=== PATIENT | female | born 1955 | race Caucasian/White ===

== ENCOUNTER 2020-08-03 19:22 | Emergency (ER) | payer OTHER ==
--- OUTSIDE RECORDS SUMMARY | 2020-08-03 19:24 | XMS REPORT | Continuity of Care Document ---
:1955 Author Organization [facility] t Address [address] [place] [address] Dr. Cisneros [address] [place] [id number] Care Team Providers Name Role Phone Unavailable Unavailable Unavailable Problems This patient has no known problems. Allergies, Adverse Reactions, Alerts This patient has no known allergies or adverse reactions. Medications This patient has no known medications. Procedures This patient has no known procedures. Results This patient has no known results.
[2020-08-03 20:25] LABS: Absolute Lymphocytes (CBC) 1.3 K/uL (0.7-4.9); Basophils % 1.4 % (0-1.3); Hematocrit 52.9 % (36.0-45.0); Lymphocytes % 24.1 % (15.3-44.8); MPV 11.7 fL (7.6-11.3); RBC Red Blood Cell Count 4.44 M/uL (3.86-4.86)
--- NOTE | 2020-08-03 20:34 | RAD REPORT ---
EXAM DESCRIPTION: RAD - Chest Single View - 08/03/2020 8:07 pm CLINICAL HISTORY: AMS COMPARISON: Portable August 2014 TECHNIQUE: AP portable chest image was obtained 08/03/2020 8:07 pm . FINDINGS: Severe emphysema changes are present with large bullous cavities occupying substantial por tions of the upper chest. This is a pattern similar to comparison. No superimposed mass, infiltrate o r failure finding. Heart size has enlarged from comparison. Pulmonary vasculature is still within nor mal limits. Trachea is midline. No measurable pleural effusion and no pneumothorax. No acute bony abn ormality seen. No acute aortic findings suspected. IMPRESSION: Severe bolus emphysema change not substantially different from comparison. No superimpos ed acute mass or infiltrate identifiable. Cardiac silhouette is enlarged from comparison. No acute failure finding seen.
--- NOTE | 2020-08-03 20:42 | RAD REPORT ---
EXAM DESCRIPTION: CT - Head Brain Wo Cont - 08/03/2020 8:21 pm CLINICAL HISTORY: AMS COMPARISON: HEAD BRAIN W O CONTRAST dated 09/01/2014 TECHNIQUE: Axial 5 mm thick images of the head were obtained without IV contrast. All CT scans are performed using dose optimization technique as appropriate and may include automated exposure control or mA/KV adjustment according to patient size. FINDINGS: A 4 centimeter intraparenchymal hematoma is present in the posterior left temporal lobe ne ar the temporal occipital junction. There is surrounding edema in the adjacent parenchyma. An underly ing mass is not distinguishable. No other area of hemorrhage seen. No cortical edema or sulcal efface ment seen. Patient has underlying atrophy and chronic ischemic change. Ventricles are in proportion t o volume loss. Arterial and physiologic calcifications are present. Mastoid air cells are clear. Left maxillary sinus is opacified slight wall thickening. No acute bony findings. Findings telephoned to Dr Bauman at 2032 hours IMPRESSION: Approximately 4 centimeter intraparenchymal left temporal lobe hematoma. Surrounding rim of edema may indicate that this is been present for 1-2 days. No associated solid mass or vascular malformation seen. This is not a typical location for hypertensi ve hemorrhage. Hemorrhagic infarction is possible. Amyloid angiopathy also a consideration. Patient has underlying atrophy and chronic ischemic change. Chronic left maxillary sinusitis.
--- NOTE | 2020-08-03 20:43 | RAD REPORT ---
EXAM DESCRIPTION: CT - C Spine Wo Con - 08/03/2020 8:27 pm CLINICAL HISTORY: Altered mental status, fall, neck pain COMPARISON: None. TECHNIQUE: Axial 2 mm thick images of the cervical spine were obtained with sagittal and coronal rec onstruction images generated and reviewed. All CT scans are performed using dose optimization technique as appropriate and may include automated exposure control or mA/KV adjustment according to patient size. FINDINGS: Cervical body height and alignment are normal. Mild posterior disc space narrowing at C4-5 . Facet joint degenerative changes are minimal. No fracture or acute bony abnormality. No paraspinal mass or hematoma. Central canal detail is inherently limited on CT imaging. Left temporal intraparenchymal hemorrhage is separately reported on CT study. Patient has severe bolu s emphysema change in each upper lung field. Lung obregon are only partially imaged. IMPRESSION: No fracture or acute cervical spine finding. Minimal cervical spine degenerative change.
--- NOTE | 2020-08-03 20:50 | RAD REPORT ---
EXAM DESCRIPTION: CT - Chest Abd Pelvis Wo Con - 08/03/2020 8:35 pm CLINICAL HISTORY: FELL YESTERDAY COMPARISON: THORAX W CONTRAST dated 11/07/2012 TECHNIQUE: During dynamic enhancement using 100 milliliters nonionic IV contrast, axial 5 millimeter thick images of the chest, abdomen and pelvis were obtained. Biphasic technique was utilized through the abdomen. Oral contrast was administered. All CT scans are performed using dose optimization technique as appropriate and may include automated exposure control or mA/KV adjustment according to patient size. FINDINGS: Severe bolus emphysema changes are present occupying the superior half of hemithorax. Spic ulated 11 x 6 mm density in the left apex. Punctate central calcifications are present. This is favor ed to be scarring but can be monitored on follow-up imaging as warranted. Scarring at the right apex noted. No suspicious mass or infiltrate seen. No pneumothorax or pleural effusion. No chest wall mas s or abnormal axillary lymphadenopathy seen. Mediastinal and hilar regions show no mass or lymphaden opathy. No significant cardiac finding. Liver shows a geographic fatty infiltration pattern. Full assessment is limited. Neoplastic process o f the liver is unlikely. Spleen and pancreas show no suspicious findings. Gallbladder and biliary shani e are normal. No hydronephrosis of either kidney. No obstructing or nonobstructing calculi. No adrenal abnormalitie s. No urinary bladder abnormalities. No uterine or ovarian suspicious finding. No dilated bowel loops or focal ball bowel wall thickening. No free air, free fluid or inflammatory stranding. No hernia, mass or bulky lymphadenopathy. Disc and bone degenerative changes are present. No pathologic bony process seen. Aortic and great vessel origin calcifications are present. Stenosis of the distal aorta near the bifu rcation evident. There is stenosis in each common iliac artery. IMPRESSION: Severe bullous emphysema change occupying each upper lung field. Scarring changes are ar e present along with 11 mm spiculated mass in the left apex. This is favored to be scarring but can b e monitored on follow-up imaging. No acute traumatic injury to the chest abdomen or pelvis. No occult malignant findings or emergent fi ndings seen. Liver shows geographic fatty infiltration pattern. Full assessment is limited in the absence of oral and IV contrast.
[2020-08-03 20:57] LABS: Blood Morphology Comment NOTED (NOT SEEN); Platelet Estimate DECR
[2020-08-03 20:58] LABS: Macrocytosis 3+
--- NOTE | 2020-08-03 21:13 | EDPHYS ---
Physician Documentation [facility] Name: Peggy Bonilla Age: 64 yrs Sex: Female : 1955 Arrival Date: 08/03/2020 Time: 19:28 Bed 2 Private MD: ED Physician Flex Bauman HPI: 08/03 19:33 This 64 yrs old Female presents to ER via EMS with complaints of Altered cp Mental Status. 19:33 The patient presents with confusion. Onset: The symptoms/episode began/occurred this cp morning. Possible causes: alcohol. 19:33 Current symptoms: In the emergency department the patient's symptoms have worsened. cp 19:33 Patient's baseline: Neuro: alert and fully oriented, Motor: no deficits, Ambulation: cp walks without assistance, Speech: normal, The patient has a previous history of seizure. reports patient drinks daily and got up last night out of bed. He heard her fall into TV but was still standing when he checked on her. reports helping her back into bed. Patient has been difficult to arouse since this morning and seemed confused. Historical: - Allergies: 19:20 No Known Allergies; rr5 - Home Meds: 19:20 Albuterol Inhl [Active]; umeclidinium inhalation inhalation [Active]; rr5 - PMHx: 19:20 Seizures; COPD; rr5 - Immunization history:: Adult Immunizations unknown. - Social history:: Smoking status: Patient reports the use of cigarette tobacco products, Patient uses alcohol. ROS: 19:35 Constitutional: Negative for fever. cp 19:35 Cardiovascular: Negative for chest pain. cp 19:35 Respiratory: Negative for wheezing. 19:35 Neuro: Positive for altered mental status. 19:35 Unable to obtain ROS due to altered mental status. Exam: 19:45 Head/Face: Normocephalic, atraumatic. cp 19:45 Constitutional: The patient appears in no acute distress, awake, non-diaphoretic, non-toxic, well developed, frail. 19:45 Eyes: Periorbital structures: appear normal, Pupils: equal, round, and reactive to light and accomodation, Conjunctiva: normal, no exudate, no injection, Lids and lashes: appear normal, bilaterally. 19:45 ENT: External ear(s): are unremarkable, Nose: is normal, Mouth: Lips: dry, Oral mucosa: dry, Posterior pharynx: Airway: no evidence of obstruction, patent. 19:45 Neck: ROM/movement: is normal, is supple, without pain, no range of motions limitations. 19:45 Chest/axilla: Inspection: normal, Palpation: crepitus, is not appreciated, tenderness, is not appreciated. 19:45 Cardiovascular: Rate: normal, Rhythm: regular, Edema: is not appreciated, JVD: is not appreciated. 19:45 Respiratory: the patient does not display signs of respiratory distress, Respirations: normal, no use of accessory muscles, no retractions, labored breathing, is not present, Breath sounds: are clear throughout, no decreased breath sounds, no stridor, no wheezing. 19:45 Abdomen/GI: Inspection: abdomen appears normal, Bowel sounds: active, all quadrants, Palpation: soft, in all quadrants, mild abdominal tenderness, in all quadrants, rebound tenderness, is not appreciated, voluntary guarding, is not appreciated, involuntary guarding, is not appreciated. 19:45 Musculoskeletal/extremity: Exam is negative for decreased range of motion, deformity, injury. 19:45 Skin: Appearance: Color: jaundiced. 19:45 Neuro: Orientation: Not oriented to person, place, situation, Mentation: confused, unable to follow commands, Motor: moves all fours, strength is normal, Sensation: no obvious gross deficits. 19:56 ECG was reviewed by the Attending Physician. cp Vital Signs: 19:20 BP 147 / 75; Pulse 91; Resp 16; Temp 98.1; Pulse Ox 96% ; rr5 20:30 BP 118 / 65; Pulse 85; Resp 16; Temp 98; Pulse Ox 96% ; rr5 21:10 BP 127 / 115; Pulse 88; Resp 16; Temp 98; Pulse Ox 98% ; Weight 45.36 kg; Height 4 ft. rr5 11 in. (149.86 cm); 21:46 BP 139 / 83; Pulse 91; Resp 16; Pulse Ox 92% ; rr5 22:30 BP 121 / 70; Pulse 90; Resp 16; Pulse Ox 95% ; rr5 21:10 Body Mass Index 20.20 (45.36 kg, 149.86 cm) rr5 Gaetano Coma Score: 19:30 Eye Response: spontaneous(4). Verbal Response: confused(4). Motor Response: obeys rr5 commands(6). Total: 14. 20:30 Eye Response: spontaneous(4). Verbal Response: confused(4). Motor Response: obeys rr5 commands(6). Total: 14. 21:10 Eye Response: spontaneous(4). Verbal Response: confused(4). Motor Response: obeys rr5 commands(6). Total: 14. 22:30 Eye Response: spontaneous(4). Verbal Response: confused(4). Motor Response: obeys rr5 commands(6). Total: 14. MDM: 19:36 Patient medically screened. 20:00 Differential Diagnosis: CVA, electrolyte abnormality, alcohol intoxication, hypoglycemia, intracranial bleed, overdose, pneumonia, seizure, sepsis, TIA, UTI, volume depletion. 20:50 Physician consultation: DR Barakat, neurosurgery \T\[facility], requests transfer to [facility] ER under care of DR Mckeon who will be accepting physician w/o consultation. 21:52 Data reviewed: vital signs, nurses notes, lab test result(s), EKG, radiologic studies, CT scan, plain films, I have discussed the patient's presentation/case with the attending Emergency Department Physician; and as a result, I will transfer patient. 08/03 19:33 Order name: Basic Metabolic Panel 08/03 19:33 Order name: CBC with Diff 08/03 19:33 Order name: LFT's 08/03 19:33 Order name: Magnesium cp 08/03 19:33 Order name: NT PRO-BNP cp 08/03 19:33 Order name: PT-INR 08/03 19:33 Order name: Troponin (emerg Dept Use Only) cp 08/03 19:33 Order name: AMMONIA cp 08/03 19:33 Order name: Lactate cp 08/03 19:33 Order name: Procalcitonin cp 08/03 19:33 Order name: Urine Microscopic Only cp 08/03 19:33 Order name: Blood Culture Adult (2) cp 08/03 19:33 Order name: Basic Metabolic Panel EDMS 08/03 19:33 Order name: CBC with Automated Diff; Complete Time: 21:49 EDMS 08/03 21:49 Interpretation: Within normal limits: HGB 18.0; HCT 52.9; MCV 119.1; MCH 40.6; PLT 111; cp RDW 16.2; MPV 11.7; MN% 15.5; BASO% 1.4. 08/03 19:33 Order name: XRAY Chest (1 view); Complete Time: 20:54 cp 02 19:33 Order name: ETOH Level; Complete Time: 20:54 cp 08/03 19:33 Order name: Liver (Hepatic) Function EDMN 08/03 19:33 Order name: Magnesium EDMN 08/03 19:33 Order name: NT PRO-BNP EDMN 08/03 19:33 Order name: Protime (+INR); Complete Time: 21:49 EDMS 08/03 19:33 Order name: Troponin (Emerg Dept Use Only) EDMN 08/03 19:33 Order name: Ammonia; Complete Time: 21:49 EDMS 08/03 21:50 Interpretation: SILVIA 18; Reviewed. 08/03 19:33 Order name: Lactate; Complete Time: 21:49 EDMN 08/03 20:56 Order name: Manual Differential; Complete Time: 21:49 EDMN 08/03 21:09 Order name: Blood Culture Pedi (1) rr5 08/03 21:28 Order name: Urine Dipstick--Ancillary (enter results); Complete Time: 21:49 tt3 08/03 21:50 Interpretation: Normal except: UBLD TRACE; UPH 7.5; UPROT 2+. 08/03 21:59 Order name: SARS-COV-2 RT PCR EDMN 08/03 19:33 Order name: EKG; Complete Time: 19:34 cp 08/03 19:33 Order name: Cardiac monitoring; Complete Time: 19:51 cp 08/03 19:33 Order name: EKG - Nurse/Tech; Complete Time: 19:51 cp 08/03 19:33 Order name: IV Saline Lock; Complete Time: 19:51 cp 08/03 19:33 Order name: Labs collected and sent; Complete Time: 21:29 cp 08/03 19:33 Order name: O2 Per Protocol; Complete Time: 20:01 cp 08/03 19:33 Order name: O2 Sat Monitoring; Complete Time: 20:01 cp 08/03 19:33 Order name: CT Head Brain wo Cont; Complete Time: 20:54 cp 08/03 20:57 Interpretation: Report reviewed. 08/03 19:33 Order name: Urine Dipstick-Ancillary (obtain specimen); Complete Time: 21:29 08/03 20:23 Order name: C Spine Wo Con; Complete Time: 20:54 EDMN 08/03 20:58 Interpretation: Report reviewed. 08/03 20:30 Order name: Chest Abd Pelvis Wo Con; Complete Time: 20:54 EDMS 08/03 20:54 Order name: Chan; Complete Time: 21:28 cp EC:56 Rate is 85 beats/min. Rhythm is regular. NM interval is normal. QRS interval is normal. cp QT interval is normal. T waves are Inverted in leads V2, V3, V4. Interpreted by me. Reviewed by me. Administered Medications: 21:20 Drug: Decadron - Dexamethasone 10 mg Route: IVP; Site: right antecubital; rr5 22:20 Follow up: Response: No adverse reaction rr5 21:22 Drug: Rocephin 1 grams Route: IV; Rate: calculated rate; Site: right hand; rr5 22:20 Follow up: Response: No adverse reaction; IV Status: Completed infusion; IV Intake: 40istq1 21:28 Dru grams of (Fosphenytoin 1 grams, NS 0.9% 100 ml) Route: IVPB; Site: right rr5 antecubital; 22:00 Follow up: Response: No adverse reaction; IV Status: Completed infusion; IV Intake: rr5 100ml Disposition: 22:00 Chart complete. 08/04 06:47 Co-signature as Attending Physician, Flex Bauman MD I agree with the assessment and [facility] plan of care. Disposition: 08/03/20 21:12 Transfer ordered to [facility]. Diagnosis are Left Temporal Lobe Hematoma, Altered mental status, unspecified. - Reason for transfer: Higher level of care. - Accepting physician is Dr Mckeon. - Condition is Stable. - Problem is new. - Symptoms have improved. Signatures: Dispatcher [employer] Flex Coley MD MD cha Page, Corey, PA PA cp Roque, Raymond, RN RN rr5 Corrections: (The following items were deleted from the chart) 08/03 21:04 20:42 CORONAVIRUS+MR.LAB.BRZ ordered. [facility] 21:16 21:12 08/03/2020 21:12 Transfer ordered to [facility]. Diagnosis is Left cp Temporal Lobe Hematoma. Reason for transfer: Higher level of care. Accepting physician is . Condition is Stable. Problem is new. Symptoms have improved. cp 22:37 21:16 08/03/2020 21:12 Transfer ordered to [facility]. Diagnosis is Left rr5 Temporal Lobe Hematoma; Altered mental status, unspecified. Reason for transfer: Higher level of care. Accepting physician is Dr Mckeon. Condition is Stable. Problem is new. Symptoms have improved. cp
--- NOTE | 2020-08-03 21:13 | ER ---
Nurse's Notes [facility] Name: Peggy Bonilla Age: 64 yrs Sex: Female : 1955 Arrival Date: 08/03/2020 Time: 19:28 Bed 2 Private MD: Diagnosis: Left Temporal Lobe Hematoma;Altered mental status, unspecified Presentation: 08/03 19:20 Chief complaint: EMS states: the stated she is having altered mental status all rr5 day. history of alcohol intake, yellow eyes noted. 19:20 Coronavirus screen: Client denies travel out of the [place] in the last 14 days. At this rr5 time, the client does not indicate any symptoms associated with coronavirus-19. Ebola Screen: Patient negative for fever greater than or equal to 101.5 degrees Fahrenheit, and additional compatible Ebola Virus Disease symptoms Patient denies exposure to infectious person. Patient denies travel to an Ebola-affected area in the 21 days before illness onset. Initial Sepsis Screen: Does the patient meet any 2 criteria? No. Patient's initial sepsis screen is negative. Does the patient have a suspected source of infection? No. Patient's initial sepsis screen is negative. Risk Assessment: Do you want to hurt yourself or someone else? Unable to obtain. Onset of symptoms was August 03, 2020. 19:20 Method Of Arrival: EMS: [facility] rr5 19:20 Acuity: MARILU 3 rr5 Triage Assessment: 19:30 General: Appears in no apparent distress. Behavior is calm, cooperative, quiet. rr5 Historical: - Allergies: 19:20 No Known Allergies; rr5 - Home Meds: 19:20 Albuterol Inhl [Active]; umeclidinium inhalation inhalation [Active]; rr5 - PMHx: 19:20 Seizures; COPD; rr5 - Immunization history:: Adult Immunizations unknown. - Social history:: Smoking status: Patient reports the use of cigarette tobacco products, Patient uses alcohol. Screenin:30 Abuse screen: Denies threats or abuse. Denies injuries from another. Nutritional rr5 screening: No deficits noted. Tuberculosis screening: No symptoms or risk factors identified. Fall Risk IV access (20 points). Gait- Impaired (20 pts.). Mental Status- Overestimates/Forgets Limitations (15 pts.). Total Tatum Fall Scale indicates High Risk Score (45 or more points). Fall prevention measures have been instituted. Side Rails Up X 2 Placed Close to Nursing Station Frequent Obs/Assessments Occuring Family Present and informed to notify staff if the need to leave the bedside As available patient and family educated on Fall Prevention Program and Strategies. Assessment: 19:30 General: Appears in no apparent distress. comfortable, Behavior is calm, quiet. rr5 19:30 Pain: Unable to use pain scale. Patient appears confused. Neuro: Level of Consciousness rr5 is awake, confused. Cardiovascular: Capillary refill < 3 seconds Patient's skin is warm and dry. Respiratory: Airway is patent Respiratory effort is even, unlabored, Respiratory pattern is regular, symmetrical. GI: No signs and/or symptoms were reported involving the gastrointestinal system. : No signs and/or symptoms were reported regarding the genitourinary system. EENT: No signs and/or symptoms were reported regarding the EENT system. Derm: Skin is fragile, is thin, Skin temperature is warm. Musculoskeletal: Capillary refill < 3 seconds. 21:00 Reassessment: reassess by ED provider explained to semiconductor dies loader the plan of care advised rr5 for transfer, they agreed fopr the plan of care. 21:47 Reassessment: call made to [facility] spoke to marie given report. rr5 22:30 Reassessment: Patient appears in no apparent distress at this time. Patient and/or rr5 family updated on plan of care and expected duration. Pain level reassessed. report given to EMS awake alert, vital signs taken and recorded. Vital Signs: 19:20 BP 147 / 75; Pulse 91; Resp 16; Temp 98.1; Pulse Ox 96% ; rr5 20:30 BP 118 / 65; Pulse 85; Resp 16; Temp 98; Pulse Ox 96% ; rr5 21:10 BP 127 / 115; Pulse 88; Resp 16; Temp 98; Pulse Ox 98% ; Weight 45.36 kg; Height 4 ft. rr5 11 in. (149.86 cm); 21:46 BP 139 / 83; Pulse 91; Resp 16; Pulse Ox 92% ; rr5 22:30 BP 121 / 70; Pulse 90; Resp 16; Pulse Ox 95% ; rr5 21:10 Body Mass Index 20.20 (45.36 kg, 149.86 cm) rr5 Gaetano Coma Score: 19:30 Eye Response: spontaneous(4). Verbal Response: confused(4). Motor Response: obeys rr5 commands(6). Total: 14. 20:30 Eye Response: spontaneous(4). Verbal Response: confused(4). Motor Response: obeys rr5 commands(6). Total: 14. 21:10 Eye Response: spontaneous(4). Verbal Response: confused(4). Motor Response: obeys rr5 commands(6). Total: 14. 22:30 Eye Response: spontaneous(4). Verbal Response: confused(4). Motor Response: obeys rr5 commands(6). Total: 14. ED Course: 19:20 Arm band placed on right wrist. rr5 19:28 Patient arrived in ED. rr5 19:30 Triage completed. rr5 19:30 Patient has correct armband on for positive identification. Placed in gown. Bed in low rr5 position. Call light in reach. Side rails up X2. Seizure precautions initiated. monitoring specialist on. Pulse ox on. NIBP on. 19:31 Flex Villalobos PA is PHCP. cp 19:31 Flex Bauman MD is Attending Physician. cp 19:51 Inserted saline lock: 22 gauge in right antecubital area, using aseptic technique. ms 19:56 Jaylon Hunter, RN is Primary Nurse. rr5 20:10 XRAY Chest (1 view) In Process Unspecified. EDMS 20:21 CT Head Brain wo Cont In Process Unspecified. EDMS 20:27 C Spine Wo Con In Process Unspecified. EDMS 20:35 Chest Abd Pelvis Wo Con In Process Unspecified. EDMS 20:37 Initiated transfer at [facility] with Peggy. tt3 20:51 Peggy called back and declined due to capacity. tt3 20:53 Initiated transfer at [facility] with Lianne Ernandez. Connected with greg Corado, regarding the case. 21:00 Inserted saline lock: 22 gauge in right wrist, using aseptic technique. Blood collected.rr5 21:02 Sharri Ernandez gave admin approval. The accepting physician is Dr. Mckeon. The pt tt3 is going to [facility] ER. Nurse to call report to . Face sheet and MOT to be faxed to [phone]. 21:05 First set of blood cultures drawn by me. rr5 21:30 Chan cath inserted, using sterile technique, 16 Fr., by me, balloon inflated, to rr5 gravity drainage, urine specimen collected. 22:35 No provider procedures requiring assistance completed. Patient transferred, IV remains rr5 in place. intact, No redness/swelling at site. Administered Medications: 21:20 Drug: Decadron - Dexamethasone 10 mg Route: IVP; Site: right antecubital; rr5 22:20 Follow up: Response: No adverse reaction rr5 21:22 Drug: Rocephin 1 grams Route: IV; Rate: calculated rate; Site: right hand; rr5 22:20 Follow up: Response: No adverse reaction; IV Status: Completed infusion; IV Intake: [id number] 21:28 Dru grams of (Fosphenytoin 1 grams, NS 0.9% 100 ml) Route: IVPB; Site: right rr5 antecubital; 22:00 Follow up: Response: No adverse reaction; IV Status: Completed infusion; IV Intake: rr5 100ml Intake: 22:00 IV: 100ml; Total: 100ml. rr5 22:20 IV: 10ml; Total: 110ml. rr5 Outcome: 21:12 ER care complete, transfer ordered by . cp 22:35 Transferred by ground EMS to [facility], Transfer form completed. rr5 22:35 Condition: stable 22:35 Discharge instructions given to family, Instructed on the need for transfer, Demonstrated understanding of instructions. 22:37 Patient left the ED. rr5 Signatures: Dispatcher [employer] EDLeigh Lee ms, Corey, PA PA Jaylon Kapoor, ABRAHAM RN rr5 Richelle, Santiago tt3
[2020-08-03] MEDS ORDERED: dexAMETHasone 10 MG/ML VIAL ONE (21:23)
[2020-08-03] MEDS ORDERED: CEFTRIAXONE/SWI 1gm 1 GM/10 ML SYR ONE (21:24)
[2020-08-03] MEDS ORDERED: FOSPHENYTOIN PE 500 MG/10 ML VIAL ONE (21:24)
[2020-08-03] MEDS ORDERED: NA CHLORIDE 0.9% 100 ML ONE (21:24)
[2020-08-03 21:35] LABS: Urine Blood TRACE (NEG); Urine Glucose NEGATIVE (NEG); Urine Protein 2+ (NEG); Urine pH 7.5 (5.0-7.0)
[2020-08-03 21:46] LABS: ALT/SGPT 39 U/L (12-78); AST/SGOT 101 U/L (15-37); Albumin 3.2 g/dL (3.4-5.0); Alkaline Phosphatase 181 U/L (45-117); BUN Blood Urea Nitrogen 6 mg/dL (7-18); Bicarbonate 26 mmol/L (21-32); Bilirubin Direct 1.4 mg/dL (0-0.2); Glucose Level 87 mg/dL (74-106); NT PRO-BNP 8065 pg/mL (<125); Potassium 3.3 mmol/L (3.5-5.1); Protein, Total 7.4 g/dL (6.4-8.2); Sodium Level 136 mmol/L (136-145); Troponin (Emerg Dept Use Only) 0.03 ng/mL (0.0-0.045)
[2020-08-03 21:49] LABS: Magnesium 1.2 mg/dL (1.8-2.4)
[2020-08-03 21:53] LABS: Urine Bacteria <20 /HPF (<20); Urine RBC <5 /HPF (NONE SEEN)
[2020-08-03 21:54] LABS: Urine Amorphous Sediment 2+ /HPF (NONE SEEN)
[2020-08-03 23:18] VITALS: TEMP 98
[2020-08-03 23:20] VITALS: BP 139/83; O2SAT 92
--- NOTE | 2020-08-04 12:17 | EKG ---
Test Date: 2020-08-03 Test Time: 19:53:48 Double Backer: RR MEASUREMENT RESULTS: Intervals: Rate: 85 UT: 144 QRSD: 88 QT: 412 QTc: 490 [place]: P: 86 UT: 144 QRS: 260 T: 39 INTERPRETIVE STATEMENTS: Normal sinus rhythm Right atrial enlargement Inferior infarct, age undetermined Anterolateral infarct, age undetermined Abnormal ECG Compared to ECG 09/01/2014 01:52:51 Sinus tachycardia no longer present Left anterior fascicular block no longer present Myocardial infarct finding still present Electronically Signed On 08-04-20 12:15:19 DECONTAMINATION TECHNICIAN by Misha Kowalski
== END 2020-08-03 22:37 | disposition short-term general hospital (02) ==
LOC: ER 19:22
DX: S06.350A Traumatic hemorrhage of left cerebrum without loss of consciousness, initial encounter (principal); W01.198A Fall on same level from slipping, tripping and stumbling with subsequent striking against other object, initial encounter; Y92.009 Unspecified place in unspecified non-institutional (private) residence as the place of occurrence of the external cause; Z20.822 Contact with and (suspected) exposure to COVID-19; J44.9 Chronic obstructive pulmonary disease, unspecified; F17.210 Nicotine dependence, cigarettes, uncomplicated
CPT/HCPCS: 93005; 87040; 85025; 80048; 36415; 80320; 82140; 83735; 85610; 80076; 83605; 84484; 84145; 83880; 70450; 71250; 72125; 74176; 71045; 51702; 99285; U0003; Q2009; J1100; J0696; 81003; 81015

== ENCOUNTER 2021-04-04 11:42 | Emergency (ER) | payer OTHER ==
[2021-04-04] MEDS ORDERED: HYDROCODONE/APAP 5/325 MG TAB ONE (12:35)
--- NOTE | 2021-04-04 12:42 | RAD REPORT ---
EXAM DESCRIPTION: CT - Spine Lumbar Wo Con - 04/04/2021 12:20 pm CLINICAL HISTORY: Radiculopathy. PAIN COMPARISON: No comparisons TECHNIQUE: Axial noncontrast CT imaging of the lumbar spine was performed with coronal and sagittal re-formatted images. All CT scans are performed using dose optimization technique as appropriate and may include automated exposure control or mA/KV adjustment according to patient size. FINDINGS: No acute lumbar spine fracture seen. No aggressive marrow pattern or malalignment. Atheros clerosis. Cholelithiasis. Paraspinal tissues are normal in thickness. No paraspinal abscess or hematoma seen. Intervertebral disc disease assessment is inherently limited by CT. Within these limitations, no high -grade canal stenosis suspected. IMPRESSION: No acute fracture of the lumbar spine is identified. Consider MRI follow-up for assessment of disc disease if clinically desired.
[2021-04-04] MEDS ORDERED: IPRATROPIUM BROM 0.5MG/2.5ML ONE (12:43)
[2021-04-04] MEDS ORDERED: predniSONE 20 MG TAB ONE (12:43)
[2021-04-04] MEDS ORDERED: ALBUTEROL 2.5 MG/3 ML NEB SOL ONE (12:43)
--- NOTE | 2021-04-04 12:54 | RAD REPORT ---
EXAM DESCRIPTION: RAD - Chest Single View - 04/04/2021 12:47 pm CLINICAL HISTORY: COUGH COMPARISON: Chest Pa And Lat (2 Views) dated 02/22/2021; Chest Single View dated 08/03/2020; CHEST SING LE VIEW dated 09/01/2014; CHEST SINGLE VIEW dated 11/06/2012 FINDINGS: Lines: None. Lungs: No evidence of edema or pneumonia. Emphysema. Pleural: No significant pleural effusions or pneumothorax. Cardiac: Cardiomegaly. Bones: Remote rib fractures. Other: IMPRESSION: Emphysema without superimposed acute process identified.
[2021-04-04] MEDS ORDERED: NA CHLORIDE 0.9% 500 ML ONE ×2 (13:44→14:45)
[2021-04-04 13:46] LABS: Absolute Lymphocytes (CBC) 1.6 K/uL (0.7-4.9); Basophils % 0.8 % (0-1.3); Hematocrit 48.6 % (36.0-45.0); Lymphocytes % 20.5 % (15.3-44.8); MPV 9.6 fL (7.6-11.3); RBC Red Blood Cell Count 5.08 M/uL (3.86-4.86)
[2021-04-04 14:05] LABS: BUN Blood Urea Nitrogen 19 mg/dL (7-18); Bicarbonate 25 mmol/L (21-32); Glucose Level 110 mg/dL (74-106); Sodium Level 139 mmol/L (136-145)
[2021-04-04 14:13] LABS: Potassium 3.8 mmol/L (3.5-5.1)
[2021-04-04 14:45] LABS: Urine Blood Trace-intact (Negative); Urine Glucose Negative (Negative); Urine Protein 2+ (Negative); Urine Specific Gravity 1.025 (1.005-1.030); Urine pH 6.5 (5.0-7.0)
[2021-04-04 15:33] LABS: Urine Bacteria <20 /HPF (<20); Urine Mucus LIGHT /HPF (NONE SEEN); Urine RBC <5 /HPF (NONE SEEN)
--- NOTE | 2021-04-04 16:12 | ER ---
Nurse's Notes [facility] Name: Peggy Bonilla Age: 65 yrs Sex: Female : 1955 Arrival Date: 04/04/2021 Time: 11:44 Bed 24 Private MD: Diagnosis: Low back pain;Dehydration Presentation: 04/04 11:48 Chief complaint: Patient states: Reports lower back pain 04/10. Reports hitting her the aj2 lower region of her back on the bathroom door knob 1 week ago. Coronavirus screen: Vaccine status: Patient reports being unvaccinated. Ebola Screen: No symptoms or risks identified at this time. Initial Sepsis Screen: Does the patient meet any 2 criteria? No. Patient's initial sepsis screen is negative. Does the patient have a suspected source of infection? No. Patient's initial sepsis screen is negative. Risk Assessment: Do you want to hurt yourself or someone else? Patient reports no desire to harm self or others. Onset of symptoms was March 28, 2021. 11:48 Method Of Arrival: EMS: [facility] 11:48 Acuity: MARILU 2 aj2 Triage Assessment: 11:53 General: Appears in no apparent distress. uncomfortable, Behavior is calm, cooperative. aj2 Pain: Complains of pain in lumbar area. Pain: Pain does not radiate. Pain currently is 10 out of 10 on a pain scale. Quality of pain is described as aching, sharp, throbbing, Pain began one week ago Is continuous, Alleviated by nothing. Aggravated by increased activity, repositioning. Musculoskeletal: Historical: - Home Meds: 11:53 Albuterol Inhl [Active]; umeclidinium inhalation [Active]; aj2 - PMHx: 11:53 COPD; Seizures; aj2 - Social history:: Smoking status: unknown. Screenin:14 Abuse screen: Denies threats or abuse. Denies injuries from another. Tuberculosis aj2 screening: No symptoms or risk factors identified. Fall Risk None identified. Assessment: 12:14 Reassessment: Patient appears in no apparent distress at this time. Patient and/or aj2 family updated on plan of care and expected duration. Pain level reassessed. Patient is alert, oriented x 3, equal unlabored respirations, skin warm/dry/pink. Pt. \T\ CT. Neuro: No deficits noted. 14:58 Reassessment: Pt ambulated with steady gait to restroom. Urine specimen obtained. ss remains at bedside. Vital Signs: 11:48 BP 149 / 70; Pulse 100; Resp 20; Temp 98.3; Pulse Ox 90% on R/A; Weight 43.09 kg; aj2 Height 5 ft. 3 in. (160.02 cm); 11:53 BP 149 / 70; Pulse 100; Resp 20; Temp 98.3; Pulse Ox 90% ; aj2 13:41 BP 149 / 75; Pulse 101; Resp 18; Temp 98.3; Pulse Ox 100% on 2 lpm NC; aj2 11:48 Body Mass Index 16.83 (43.09 kg, 160.02 cm) aj2 ED Course: 11:44 Patient arrived in ED. ss 11:45 Tena Oseguera FNP-C [facility]. kb 11:45 Toney Grewal MD is Attending Physician. kb 11:47 Malou Medellin is Primary Nurse. aj2 11:53 Triage completed. aj2 11:53 Arm band placed on right wrist. aj2 12:14 \T\ CT. aj2 12:14 Patient has correct armband on for positive identification. aj2 12:14 No provider procedures requiring assistance completed. aj2 12:19 CT Lumbar Spine Wo Con In Process Unspecified. EDMS 12:46 Chest Single View XRAY In Process Unspecified. EDMS 13:35 Basic Metabolic Panel Sent. aj2 13:35 CBC with Diff Sent. aj2 13:41 No apparent distress. Resting quietly. aj2 13:41 Inserted saline lock: 20 gauge in right forearm, using aseptic technique. aj2 17:11 IV discontinued, intact, bleeding controlled, No redness/swelling at site. Pressure ss dressing applied. Administered Medications: 12:07 Drug: HYDROcodone-acetaminophen 5 mg-325 mg 1 tabs Route: PO; aj2 12:15 Drug: predniSONE 40 mg Route: PO; aj2 12:20 Drug: DuoNeb (albuterol 2.5 mg, ipratropium 0.5 mg) (3:1) (2.5 mg - 0.5 mg) 3 ml Route: aj2 Nebulizer; 13:34 CANCELLED (Per HILDA Oseguera): NS 0.9% 1000 ml IV at 1000 ml once aj2 13:52 Drug: NS 0.9% 500 ml Route: IV; Rate: bolus; Site: right forearm; aj2 15:13 Drug: NS 0.9% 500 ml Route: IV; Rate: bolus; Site: right wrist; aj2 Outcome: 16:11 Discharge ordered by . zulema 17:11 Discharged to home ambulatory. ss 17:11 Condition: good 17:11 Discharge instructions given to patient, Instructed on discharge instructions, follow up and referral plans. Demonstrated understanding of instructions, follow-up care, Prescriptions given X 1. 17:13 Patient left the ED. ss Signatures: Dispatcher [employer] EDTena Gaytan, FINISHING MACHINE OPERATORHansel HUTCHISON-Teena Carter RN RN Malou Arizmendi aj2
--- NOTE | 2021-04-04 16:13 | EDPHYS ---
Physician Documentation [facility] Name: Peggy Bonilla Age: 65 yrs Sex: Female : 1955 Arrival Date: 04/04/2021 Time: 11:44 Bed 24 Private MD: ED Physician Toney Grewal HPI: 04/04 13:48 This 65 yrs old Female presents to ER via EMS with complaints of Back Pain. kb 13:48 The patient presents with pain that is acute. The symptoms are located in the lumbar kb area and left low back. Onset: The symptoms/episode began/occurred 1 week(s) ago. The pain does not radiate. Associated signs and symptoms: The patient has no apparent associated signs or symptoms. The problem was sustained from a direct blow. Modifying factors: The patient symptoms are alleviated by nothing, the patient symptoms are aggravated by any movement, standing, walking. Severity of symptoms: At their worst the symptoms were moderate, in the emergency department the symptoms are unchanged. The patient has not experienced similar symptoms in the past. The patient has not recently seen a physician. Pt reports she was mopping the floor last week and walked backwards into a doorknob. Reports pain to low back since then. Pt has COPD and has some wheezing. Denies shortness of breath. Historical: - Home Meds: 11:53 Albuterol Inhl [Active]; umeclidinium inhalation [Active]; aj2 - PMHx: 11:53 COPD; Seizures; aj2 - Social history:: Smoking status: unknown. ROS: 13:50 Constitutional: Negative for fever, chills, and weight loss. kb 13:50 Back: Positive for pain at rest, pain with movement, of the lumbar area and left low back. 13:50 All other systems are negative. Exam: 13:50 Constitutional: This is a well developed, well nourished patient who is awake, alert, kb and in no acute distress. Head/Face: Normocephalic, atraumatic. ENT: Moist Mucous membranes Skin: Warm, dry with normal turgor. Normal color. MS/ Extremity: Pulses equal, no cyanosis. Neurovascular intact. Full, normal range of motion. Neuro: Awake and alert, GCS 15, oriented to person, place, time, and situation. Moves all extremities. Normal gait. Psych: Awake, alert, with orientation to person, place and time. Behavior, mood, and affect are within normal limits. 13:50 Respiratory: the patient does not display signs of respiratory distress, Respirations: normal, Breath sounds: wheezing: expiratory that is mild, is heard diffusely. 13:50 Back: pain, that is moderate, of the lumbar area and left low back, ROM is painful, normal spinal alignment noted, CVA tenderness, is absent. Vital Signs: 11:48 BP 149 / 70; Pulse 100; Resp 20; Temp 98.3; Pulse Ox 90% on R/A; Weight 43.09 kg; aj2 Height 5 ft. 3 in. (160.02 cm); 11:53 BP 149 / 70; Pulse 100; Resp 20; Temp 98.3; Pulse Ox 90% ; aj2 13:41 BP 149 / 75; Pulse 101; Resp 18; Temp 98.3; Pulse Ox 100% on 2 lpm NC; aj2 11:48 Body Mass Index 16.83 (43.09 kg, 160.02 cm) aj2 MDM: 11:45 Patient medically screened. kb 13:14 Data reviewed: vital signs, nurses notes. Data interpreted: Pulse oximetry: on room air kb is 90 %. Interpretation: borderline. ED course: now reports pt hasn't been eating or drinking much this week and he is worried about dehydration. 16:11 Counseling: I had a detailed discussion with the patient and/or guardian regarding: the kb historical points, exam findings, and any diagnostic results supporting the discharge/admit diagnosis, lab results, radiology results, the need for outpatient follow up, a family practitioner, to return to the emergency department if symptoms worsen or persist or if there are any questions or concerns that arise at home. 17:30 Differential diagnosis: Fracture sprain, contusion. kb 04/04 13:08 Order name: CBC with Diff; Complete Time: 14:08 kb 04/04 13:08 Order name: Basic Metabolic Panel; Complete Time: 14:17 kb 04/04 11:46 Order name: CT Lumbar Spine Wo Con; Complete Time: 12:43 kb 04/04 13:08 Order name: Urine Microscopic Only; Complete Time: 16:11 kb 04/04 14:45 Order name: Urine Dipstick-Ancillary; Complete Time: 14:57 EDMS 10/04 15:33 Order name: Urine Culture EDAZ 04/04 11:57 Order name: Chest Single View XRAY; Complete Time: 12:56 kb 04/04 13:08 Order name: Urine Dipstick-Ancillary (obtain specimen); Complete Time: 14:47 kb 04/04 13:08 Order name: IV Start; Complete Time: 13:34 kb Administered Medications: 12:07 Drug: HYDROcodone-acetaminophen 5 mg-325 mg 1 tabs Route: PO; aj2 12:15 Drug: predniSONE 40 mg Route: PO; aj2 12:20 Drug: DuoNeb (albuterol 2.5 mg, ipratropium 0.5 mg) (3:1) (2.5 mg - 0.5 mg) 3 ml Route: aj2 Nebulizer; 13:34 CANCELLED (Per HILDA Oseguera): NS 0.9% 1000 ml IV at 1000 ml once aj2 13:52 Drug: NS 0.9% 500 ml Route: IV; Rate: bolus; Site: right forearm; aj2 15:13 Drug: NS 0.9% 500 ml Route: IV; Rate: bolus; Site: right wrist; aj2 Disposition: 17:25 Co-signature as Attending Physician, Toney Grewal MD I agree with the assessment and rn plan of care. Attestation: The patient's history, exam findings, diagnostics, and a summary of any interventions or procedures was reviewed in detail with Tena MARK. Disposition Summary: 04/04/21 16:11 Discharge Ordered Location: Home kb Condition: Stable kb Diagnosis - Low back pain kb - Dehydration kb Followup: kb - With: Emergency Department - When: As needed - Reason: Worsening of condition Followup: kb - With: Private Physician - When: 2 - 3 days - Reason: Recheck today's complaints, Continuance of care, Re-evaluation by your physician Discharge Instructions: - Discharge Summary Sheet kb - Dehydration, Adult kb - Musculoskeletal Pain kb Forms: - Medication Reconciliation Form kb - Thank You Letter kb - Antibiotic Education kb - Prescription Opioid Use kb Prescriptions: - Cyclobenzaprine 5 mg Oral Tablet - take 1 tablet by ORAL route 3 times per day As needed; 15 tablet; Refills: 0, kb Product Selection Permitted Signatures: Dispatcher [employer] [facility] Tena Oseguera FNP-C FNP-Ckb Toney Grewal MD MD rn Jenkins, Angelea aj2 Corrections: (The following items were deleted from the chart) 13: 13:08 NS 0.9% 1000 ml IV at 1000 ml once ordered. kb aj2 13:34 13:16 NS 0.9% 1000 ml IV at 1000 ml once ordered. aj2 aj2
[2021-04-04 17:28] VITALS: TEMP 98.3
[2021-04-04 17:31] VITALS: BP 149/75; O2SAT 100
== END 2021-04-04 17:13 | disposition home or self-care (01) ==
LOC: ER 11:42
DX: M54.50 Low back pain, unspecified (principal); E86.0 Dehydration; J44.9 Chronic obstructive pulmonary disease, unspecified
CPT/HCPCS: 87088; 85025; 87086; 80048; 36415; 72131; 71045; 99284; J7040 ×2; 81003; 81015; J7512